=== PATIENT | female | born 2000 | race Caucasian/White ===

== ENCOUNTER 2020-02-09 14:24 | Emergency (ER) | payer BC ==
[2020-02-09] MEDS ORDERED: Azithromycin 250 MG Tab PO STA (14:32)
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
== END 2020-02-09 15:13 | disposition home or self-care (01) ==
LOC: MW.ED 14:24
DX: Z02.89 Encounter for other administrative examinations (principal)
CPT/HCPCS: 99282; A9270; G0480